=== PATIENT | female | born 1995 | race Caucasian/White ===

== ENCOUNTER 2023-08-23 06:03 | Inpatient (IN) | payer OTHER ==
[~2023-08-23] VITALS: Ht 170.2 cm; Wt 72.4 kg
[2023-08-23] VITALS (48 sets, daily range): BP systolic 79–130; BP diastolic 50–78; O2SAT 100
[2023-08-23] MEDS ORDERED: PRENTAB9 PO (06:27)
[2023-08-23] MEDS ORDERED: LACTATED RINGER'S 1000 ML IV STA (07:06)
[2023-08-23] MEDS ORDERED: NALBUPHINE HCL (10 MG/ML) 100MG/10ML MDV IV PRN (07:35)
[2023-08-23] MEDS ORDERED: PROMETHAZINE 25MG/ML 1ML VIAL IV PRN (07:35)
[2023-08-23] MEDS: LR 1,000 ML IV SCH ×3 (07:58→15:42)
[2023-08-23 08:35] LABS: HEMATOCRIT 33.8 % (36.0-47.0); HEMOGLOBIN 11.7 g/dl (12.0-15.5); MEAN CORPUSCULAR HEMOGLOBIN 31.7 pg (27.0-33.0); MEAN CORPUSCULAR HGB CONC 34.6 g/dl (32.0-36.5); MEAN CORPUSCULAR VOLUME 91.6 fl (80.0-96.0); PLATELET COUNT, AUTOMATED 235 10^3/uL (150-450); RED BLOOD COUNT 3.69 10^6/uL (4.00-5.40); WHITE BLOOD COUNT 13.3 10^3/uL (4.0-10.0)
[2023-08-23] MEDS ORDERED: LR 1,000 ML IV SCH ×2 (13:25→19:05)
[2023-08-23] MEDS ORDERED: OXYTOCIN DRIP 30 UNITS in IV 1 EA IV SCH ×5 (13:25→19:05)
[2023-08-23] MEDS ORDERED: LR 500 ML IV PRN (13:40)
[2023-08-23] MEDS ORDERED: diphenhydrAMINE 50MG/ML VIAL IV PRN (13:40)
[2023-08-23] MEDS ORDERED: NALOXONE INJ 0.4MG/1ML VIAL IV PRN (13:40)
[2023-08-23] MEDS ORDERED: FENTANYL/ROPIVACAINE/NACL BAG 100 ML EPIDURAL SCH (13:40)
[2023-08-23] MEDS ORDERED: EPIDURAL/PCA KEYS XX PRN (13:40)
[2023-08-23] MEDS ORDERED: ONDANSETRON 4MG 2ML VIAL IV PRN (13:40)
[2023-08-23] MEDS ORDERED: FENTANYL 2MCG/ML ROPIVACAINE 0.2% IN 0.9% NACL 100ML IVBAG As Ordered ONE (13:43)
[2023-08-23] MEDS: ePHEDrine SULFATE 25 MG/5 ML(5MG/ML) SYRINGE IVP PRN ×3 (14:56→15:04)
[2023-08-23] MEDS ORDERED: IBUPROFEN 800 MG TAB PO PRN (19:05)
[2023-08-23] MEDS ORDERED: METHYLERGONOVINE MALEATE 0.2 MG TAB PO PRN (19:05)
[2023-08-23] MEDS ORDERED: RHOGAM 300MCG (1500IU) INJ IM SCH (19:05)
[2023-08-23] MEDS ORDERED: ACETAMINOPHEN 500 MG TAB PO PRN (19:05)
[2023-08-23] MEDS ORDERED: DOCUSATE SODIUM 100MG CAPSULE PO PRN (19:05)
[2023-08-23] MEDS ORDERED: DIBUCAINE 1% OINTMENT 30GM TOP PRN (19:05)
[2023-08-23] MEDS ORDERED: METOCLOPRAMIDE INJ 10MG/2ML VIAL IV PRN (19:05)
[2023-08-23] MEDS ORDERED: MOM 30ML SUSPENSION UDC PO PRN (19:05)
[2023-08-23] MEDS ORDERED: ACETAMINOPHEN TAB 650MG DOSE (2X325MG) PO PRN (19:05)
[2023-08-23] MEDS: IBUPROFEN 600MG TAB PO PRN (21:37)
[2023-08-24] MEDS: IBUPROFEN 600MG TAB PO PRN ×3 (05:13→18:45)
[2023-08-24 06:00] VITALS: BP 98/56; O2SAT 97
[2023-08-24] MEDS: PRENATAL VITAMINS CHEWABLE TABLET PO SCH (08:53)
[2023-08-24 18:00] VITALS: BP 118/81; O2SAT 100
[2023-08-25 06:00] VITALS: BP 110/78
[2023-08-25] MEDS ORDERED: MEASLES,MUMPS,RUBELLA VACCINE INJ (MMR-II) SC.IMMUN ONE (09:00)
[2023-08-25] MEDS: PRENATAL VITAMINS CHEWABLE TABLET PO SCH (09:15)
[2023-08-25] MEDS: IBUPROFEN 600MG TAB PO PRN (09:15)
== END 2023-08-25 12:30 | disposition home or self-care (01) | DRG 807 ==
LOC: M LDO 06:03 → M LDI 06:42 → M OBS 21:07
PROVIDERS: ADMIT Obstetrics & Gynecology; ATTEND Obstetrics & Gynecology
PROC: 10E0XZZ Delivery of Products of Conception, External Approach (ICD-10-PCS; principal; 2023-08-23)
PROC: 0KQM0ZZ Repair Perineum Muscle, Open Approach (ICD-10-PCS; 2023-08-23)
DX: O48.0 Post-term pregnancy (principal); Z37.0 Single live birth; Z3A.40 40 weeks gestation of pregnancy; Z91.018 Allergy to other foods; O70.1 Second degree perineal laceration during delivery; O69.81X0 Labor and delivery complicated by cord around neck, without compression, not applicable or unspecified